=== PATIENT | male | born 1985 | race Hispanic/Latino ===

== ENCOUNTER 2017-09-06 17:31 | Emergency (ER) | payer BC ==
[2017-09-06 18:15] LABS: Bilirubin Negative (Negative); Blood, Urine Moderate (Negative); Clarity CLOUDY (Clear); Glucose, Urine (Dipstick) Negative (Negative); Leukocyte Large (Negative); Nitrite Negative (Negative); Protein, Urine (Dipstick) Negative (Neg-Trace); Specific Gravity, Urine 1.006 (1.002-1.036)
[2017-09-06 18:17] LABS: Bacteria/HPF None Seen HPF (None Seen); Hyaline Casts/LPF 0-3 HYALINE CAST LPF (0-3 Hyaline); Pathc Cast-AUWi Flag 0.87 (0-2.49); Squamous Epithelial None Seen HPF (0-3)
[2017-09-06] MEDS ORDERED: Azithromycin 250 MG TAB ONE (18:17)
[2017-09-06] MEDS ORDERED: cefTRIAXone\\ROCEPHIN 250 MG VIAL ONE (18:17)
[2017-09-06] MEDS ORDERED: Lidocaine 1% PF 5 ML VIAL ONE (18:19)
== END 2017-09-06 18:36 | disposition home or self-care (01) ==
LOC: ERS 17:31
DX: Z20.2 Contact with and (suspected) exposure to infections with a predominantly sexual mode of transmission (principal)
CPT/HCPCS: 81003; 81015; 87086; 87491; 87591; 99283; J0696; J2001

== ENCOUNTER → 2018-09-11 | Day surgery (SDC) | payer BC ==
[~2018-09-11] MED LIST: Adacel (T-DAP) 0.5 ML SYRINGE ONE; Bacitracin Zinc Ointment 30 gm TUBE ONE; Betamet Acet/Betamet Na Ph 30 MG/5 ML VIAL ONE; Bupivacaine PF 0.5% 30 ML VIAL ONE; Clindamycin/D5W 900 mg/50 ml Premix Bag ONE; Dexamethasone 20 MG/5 ML VIAL ONE; Fentanyl 100 MCG/2 ML VIAL ONE; Ketorolac Tromethamine 30 MG/ML VIAL ONE; Lidocaine 2% PF 5 ML VIAL ONE; Morphine 4 MG/ML VIAL ONE; Ondansetron PF 4 MG/2 ML Vial ONE; PROPOFOL 200 MG/20 ML VIAL ONE; Sodium Chloride 0.9% 50 ML ONE; Succinylcholine Chloride 20 MG/ML 10 ml SYRINGE FS ONE
--- NOTE | 2018-09-11 07:44 | RAD ---
XR Hand Lt 3 View STANDARD: 09/11/2018 7:14 AM CLINICAL INDICATION: Injury, pain COMPARISON: None. FINDINGS: Fracture:There is a fracture centered at the base of the thumb distal phalanx, with mild displacement and surrounding soft tissue prominence. Intra-articular extension is seen at the medial base. Arthropathy:None of significance. Incidental findings:None of significance. IMPRESSION: 1. Intra-articular fracture of the base of the thumb distal phalanx.
--- NOTE | 2018-09-11 14:00 | RAD ---
2 fluoroscopic spot images of the left thumb INDICATION: Reduction and pinning of the left thumb fracture COMPARISON: Prior left hand radiograph dated September 11, 2018 FINDINGS: Since the comparison exam there is been interval reduction and percutaneous pinning of the left thumb distal phalangeal fracture. Fracture alignment is near anatomic. The smooth Trini wires project in the expected position. IMPRESSION: Intraoperative C-arm views of reduction and percutaneous pinning of the patient's left th umb distal phalangeal fracture.
--- NOTE | 2018-09-12 09:08 | OP ---
DATE OF PROCEDURE: 09/11/2018 PREOPERATIVE DIAGNOSES: 1. Left thumb dog bite, open distal phalanx fracture. 2. Left thumb, interphalangeal joint open. 3. Left thumb partial proximal 35% extensor tendon laceration. 4. Left thumb dorsal superficial radial cutaneous nerve laceration complete. 5. 1.0 cm laceration, dorsal radial IPJ. COMPLICATIONS: None. TOURNIQUET TIME: 47 minutes. BLOOD LOSS: 15 mL. FINDINGS: No infection. Only a small amount of clot, intra-articular, with no evidence of particulate matter. PROCEDURES PERFORMED: 1. Debridement of wound, 73003, level II, open fracture debridement and debridement of material associated with open fracture, 79767, level. 2. ORIF distal phalanx fracture, 57412. Nerve repair, cutaneous under magnification. 3. Splint, short-arm, application. Wound was left open to 1 cm of wound caused by dog bite because of open fracture. ANESTHESIA: General LMA technique augmented by total of 20 mL of 0.5% Marcaine at the metacarpophalangeal joint level of the thumb. DESCRIPTION OF PROCEDURE: After successful general endotracheal anesthesia, the limb was prepped and draped. The patient had time-out done appropriately. C-arm was draped and brought into the field. We then exsanguinated the wound, inflated tourniquet to 250 mmHg pressure and extended the wound 1.5 cm proximally and 1 cm distally. This allowed to expose the entire fracture. We saw some comminution and there was only approximately 3 mm wide area proximal to the fracture line and it was intra-articular. We then saw the proximal 35% radial to dorsal, but not past the midline at all through the laceration, we visualized the joint. Performed debridement here as we defer fracture site to debride the wound and material associated with open fracture and the joint as follows. 1. Excision technique. 2. Use of curette, Darwin blade, right angle clamp and 5000 mL normal saline Pulsavac with bacitracin inside. The depth was down to include bone for the bone debridement of material associated with fracture down to include the joint for dislocation. There was a very much sagittal plane split and we could see there was some sidewall radial comminution, so once we performed debridement gently with a curette, we managed to displace the fracture and irrigated with 5 L normal saline and Pulsavac pressure with bacitracin inside, 50,000 units/L. We then curetted one more time and irrigated with 500 mL of normal saline and then did a closed reduction of the fracture, also reduced the joint and we placed three 0.25 K-wires across the fracture line, holding it in nearly anatomic position, three K-wires were cut below the skin. C-arm took final pictures from the sagittal plane. Flexor tendon was intact. Extensor tendon was now 35% proximally lacerated, so we closed this with interrupted 5-0 Prolene in [id number] pattern. We then cut the wires slightly below the skin to be extracted in the office. We finished debridement of the wound. We released the tourniquet and at this point, we saw the laceration extensor mechanism radial side, repaired this with interrupted 4-0 Prolene in a [id number] pattern. We then saw that the superficial cutaneous radial nerve dorsal skin on the index finger aspect of the thumb was lacerated, so we brought out magnification, barely debrided the wound, edges of the laceration, and sutured them with 9-0 nylon. The patient had no complications. Tourniquet was deflated and left the operating room without evidence of anesthetic or operative complication in a short-arm splint. Job ID: [id number]
== END ==
LOC: ERS 07:06 → SDC 10:52
PROVIDERS: ATTEND Orthopaedic Surgery Hand Surgery
PROC: 0LQ80ZZ Repair Left Hand Tendon, Open Approach (ICD-10-PCS; principal; 2018-09-11)
PROC: 0PSS04Z Reposition Left Thumb Phalanx with Internal Fixation Device, Open Approach (ICD-10-PCS; principal; 2018-09-11)
PROC: 01Q60ZZ Repair Radial Nerve, Open Approach (ICD-10-PCS; principal; 2018-09-11)
DX: S64.32XA Injury of digital nerve of left thumb, initial encounter (principal); S62.522B Displaced fracture of distal phalanx of left thumb, initial encounter for open fracture; S66.222A Laceration of extensor muscle, fascia and tendon of left thumb at wrist and hand level, initial encounter; W54.0XXA Bitten by dog, initial encounter
CPT/HCPCS: 29125; 76000; 87070; 87205; 90471; 90715; 96361; 96365; 96375; J0690; J0702; J1100; J1885; J2001; J2270; J2405; J2704; J3010; J3490; S0020

== ENCOUNTER 2019-07-13 06:54 | Emergency (ER) | payer BC ==
[2019-07-13] MEDS ORDERED: cefTRIAXone\\ROCEPHIN 250 MG VIAL ONE (07:32)
[2019-07-13] MEDS ORDERED: Azithromycin 250 MG TAB ONE (07:32)
[2019-07-13] MEDS ORDERED: Lidocaine 1% PF 5 ML VIAL ONE (07:34)
[2019-07-15 19:33] LABS: Chlam.trachomatis by PCR,Urine Not Detected (NotDetected)
== END 2019-07-13 09:27 | disposition home or self-care (01) ==
LOC: ERS 06:54
DX: A64 Unspecified sexually transmitted disease (principal)
CPT/HCPCS: 87491; 87591; 96372; 99283; J0696; J2001

== ENCOUNTER 2019-09-09 22:32 | Emergency (ER) | payer BC ==
--- NOTE | 2019-09-10 07:41 | CT ---
CT FACIAL BONES WITHOUT CONTRAST: Date: 09/09/2019 HISTORY: Trauma. COMPARISON: None. FINDINGS: There is a fracture of the left nasal bone at the nasomaxillary suture with 2 mm medial displacement. Nondisplaced fracture of the right nasal bone extending over the nasal crest. The osseous nasal sept um is without fracture. Left nasal labia soft tissue contusion with gas extending through the fracture from the nasopharynx t o the adjacent superficial soft tissues. Mandible is intact. The zygoma, zygomatic arches, medial orbital adan, lateral orbital adan, orbita l floors, and orbital roofs are intact. Pterygoid plates are intact. Globes are intact. IMPRESSION: Bilateral nasal bone fractures as described, worse on the left. POS: HOME
--- NOTE | 2019-09-10 07:49 | CT ---
CT BRAIN WITHOUT CONTRAST: HISTORY: Trauma. COMPARISON: CT brain 2017. FINDINGS: No acute hemorrhage or infarct. No midline shift or mass effect. Ventricular size and extraaxial CS F spaces are normal. The calvarium is intact. Paranasal sinuses and mastoids are clear. IMPRESSION: No acute intracranial abnormality. POS: HOME
== END 2019-09-10 00:12 | disposition home or self-care (01) ==
LOC: ERS 22:32
DX: S02.2XXA Fracture of nasal bones, initial encounter for closed fracture (principal); F10.129 Alcohol abuse with intoxication, unspecified; Y08.89XA Assault by other specified means, initial encounter
CPT/HCPCS: 12011; 70450; 70486; 93005

== ENCOUNTER 2020-10-01 20:55 | Emergency (ER) | payer BC, SELFPAY ==
[2020-10-01 21:57] LABS: #Basophils 0.1 thou/uL (0.0-0.2); #Eosinphils 0.2 thou/uL (0.0-0.7); #Lymphocytes 2.1 thou/uL (1.20-3.40); #Monocytes 0.5 thou/uL (0.11-0.59); #Neutrophils 4.5 thou/uL (1.40-6.50); %Basophils 0.9 % (0.0-1.0); %Eosinophils 2.9 % (0.0-10.0); %Lymphocytes 28.1 % (21.0-51.0); Hemoglobin 14.6 g/dL (14.0-18.0); Mean Corpuscular HGB CONC 33.5 g/dL (32.0-36.0); Mean Corpuscular Hemoglobin 31.9 pg (27.0-31.0); Mean Corpuscular Volume 95.3 fL (78.0-98.0); Mean Platelet Volume 8.4 fL (7.4-10.4); Platelet Count 259 thou/uL (130-400); RBC Distribution Width 11.6 % (11.5-14.5); Red Blood Cell (RBC) Count 4.58 mill/uL (4.70-6.10); White Blood Cell (WBC) Count 7.4 thou/uL (4.8-10.8)
[2020-10-01] MEDS ORDERED: Ketorolac Tromethamine 30 MG/ML VIAL ONE (22:03)
[2020-10-01 22:18] LABS: ALT (SGPT) 22 U/L (8-55); AST (SGOT) 16 U/L (5-34); Alkaline Phosphatase 81 U/L (40-110); Anion Gap 11 mmol/L (10-20); BUN (Urea Nitrogen) 11 mg/dL (8.9-20.6); Bilirubin, Total 0.2 mg/dL (0.2-1.2); Calc. Creatinine Clearance 0 mL/min (70-130); Calcium 8.8 mg/dL (7.8-10.44); Carbon Dioxide 30 mmol/L (22-29); Chloride 102 mmol/L (98-107); Globulin 2.4 g/dL (2.4-3.5); Glucose 88 mg/dL (70-105); Potassium 4.5 mmol/L (3.5-5.1); Protein, Total 6.4 g/dL (6.0-8.3); Sodium 138 mmol/L (136-145)
== END 2020-10-01 23:16 | disposition home or self-care (01) ==
LOC: ERS 20:55
DX: M25.531 Pain in right wrist (principal); F17.290 Nicotine dependence, other tobacco product, uncomplicated
CPT/HCPCS: 36416; 80053; 83735; 85025; 96374; J1885

== ENCOUNTER 2020-10-16 21:16 | Emergency (ER) | payer SELFPAY ==
[2020-10-16 22:37] LABS: Bilirubin Negative (Negative); Blood, Urine Moderate (Negative); Glucose, Urine (Dipstick) Negative (Negative); Ketone, Urine Negative (Negative); Leukocyte Small (Negative); Nitrite Negative (Negative); Protein, Urine (Dipstick) 30 mg/dL (Neg-Trace)
[2020-10-16 22:39] LABS: Clarity Cloudy (Clear); Specific Gravity, Urine 1.029 (1.002-1.036)
[2020-10-16 22:42] LABS: Squamous Epithelial None Seen HPF (0-3); WBC/HPF Greater than 50 HPF (0-3)
[2020-10-16] MEDS ORDERED: cefTRIAXone\\ROCEPHIN 500 MG VIAL ONE (22:45)
[2020-10-16] MEDS ORDERED: Lidocaine 1% PF 5 ML VIAL ONE (22:45)
[2020-10-16 22:48] LABS: Bacteria/HPF 3+ HPF (None Seen)
== END 2020-10-16 23:14 | disposition home or self-care (01) ==
LOC: ERS 21:16
DX: A64 Unspecified sexually transmitted disease (principal); F17.290 Nicotine dependence, other tobacco product, uncomplicated
CPT/HCPCS: 81003; 81015; 87086; 87491; 87591; 96372; 99283; J0696